=== PATIENT | male | born 1955 | race Caucasian/White ===

== ENCOUNTER 2020-05-10 20:22 | Observation (INO) | payer BC ==
[~2020-05-10] VITALS: Ht 177.8 cm; Wt 78.9 kg
[2020-05-10 21:33] LABS: HEMOGLOBIN 7.1 g/dl (14.0-17.9); LYMPHOCYTES # (AUTO) 2.1 X10'3 (1.1-4.8); LYMPHOCYTES % (AUTO) 26.3 % (21-51); MONOCYTES # (AUTO) 0.8 X10'3 (0-0.9); WHITE BLOOD COUNT 7.9 X10'3 (4.5-11.0)
[2020-05-10 21:35] LABS: BASOPHILS # (AUTO) 0.1 X10'3 (0-0.2); BASOPHILS % (AUTO) 1.8 % (0-1); EOSINOPHILS # (AUTO) 0.2 X10'3 (0-0.9); MONOCYTES % (AUTO) 9.8 % (2-12); NEUTROPHILS # (AUTO) 4.7 X10'3 (1.8-7.7); NEUTROPHILS % (AUTO) 59.1 % (42-75); PLATELET COUNT 260 X10'3 (140-440)
[2020-05-10 21:52] LABS: ALANINE AMINOTRANSFERASE 16 U/L (12-78); ALBUMIN 3.6 G/DL (3.4-5.0); ALBUMIN/GLOBULIN RATIO 1.2 (1.1-1.5); ALKALINE PHOSPHATASE 73 IU/L (46-116); ANION GAP 10 (8-16); ASPARTATE AMINO TRANSFERASE 14 U/L (10-37); BILIRUBIN,TOTAL 0.5 MG/DL (0.1-1.0); BLOOD UREA NITROGEN 15 MG/DL (7-18); BUN/CREATININE RATIO 15.8 (5.4-32.0); CALCIUM 8.9 MG/DL (8.5-10.1); CHLORIDE 103 MMOL/L (99-107); CREATININE 0.95 MG/DL (0.60-1.10); GLUCOSE 101 MG/DL (70-104); POTASSIUM 4.2 MMOL/L (3.5-5.1); SODIUM 137 MMOL/L (135-145); TOTAL CARBON DIOXIDE 23.7 MMOL/L (24-32); TOTAL PROTEIN 6.7 G/DL (6.4-8.2); eGFR 79 ML/MIN
[2020-05-10 22:21] LABS: HEMATOCRIT 23.1 % (42.0-52.0); MEAN CORPUSCULAR HEMOGLOBIN 22.5 PG (27.0-31.0); MEAN CORPUSCULAR HGB CONC 30.6 g/dL (33.0-36.5); MEAN CORPUSCULAR VOLUME 73.5 FL (78-98); RED BLOOD COUNT 3.14 X10'6 (4.70-6.10); RED CELL DISTRIBUTION WIDTH 18.9 % (11.5-14.5)
[2020-05-10 22:57] LABS: CLARITY,URINE CLEAR (Clear); COLOR,URINE YELLOW (Yellow); GLUCOSE, URINE NEGATIVE (Neg); KETONES,URINE NEGATIVE (Neg); LEUKOCYTE ESTERASE ,URINE TRACE (Neg); NITRITES, URINE NEGATIVE (Neg); OCCULT BLOOD,URINE TRACE-INTACT (Neg); PH,URINE 5.5 (4.8-8.0); PROTEIN,URINE NEGATIVE (Neg)
[2020-05-10 22:58] LABS: UA COLLECTION TYPE CLN CATCH MIDSTREAM
[2020-05-10 23:01] LABS: BACTERIA,URINE NONE SEEN /HPF (Neg); RBC,URINE 0-2 /HPF (0-2); SQUAMOUS EPITHELIAL CELL,UR FEW /LPF (FEW); WBC,URINE 0-4 /HPF (0-4)
[2020-05-10] MEDS ORDERED: pantoprazole 40 MG vial IV ONE (23:20)
--- NOTE | 2020-05-10 23:26 | NUR ---
x ray at bedside
[2020-05-10 23:40] LABS: PARTIAL THROMBOPLASTIN TIME 25 SECONDS (22-32)
[2020-05-11] VITALS (14 sets, daily range): BP systolic 105–148; BP diastolic 49–85
[2020-05-11] MEDS ORDERED: normal saline 1000ml 1,000 ML IV SCH (00:29)
[2020-05-11] MEDS ORDERED: ondansetron/PF 4mg/2ml inj IV PRN (00:30)
[2020-05-11] MEDS ORDERED: magnesium Cl slow-release 64mg tablet PO PRN (00:30)
[2020-05-11] MEDS ORDERED: magnesium hydroxide 30ml (MOM) UD suspension PO PRN (00:30)
[2020-05-11] MEDS ORDERED: mag hydrox/Alum hydrox/simeth 30ml oral suspension PO PRN (00:30)
[2020-05-11] MEDS ORDERED: HYDROcodone/acetaminophen 10/325mg tab PO PRN (00:30)
[2020-05-11] MEDS ORDERED: potassium Cl 20 mEq SR tablet PO PRN ×2 (00:30)
[2020-05-11] MEDS ORDERED: diphenhydrAMINE 25mg capsule PO PRN (00:30)
[2020-05-11] MEDS ORDERED: HYDROcodone/acetaminophen 5mg/325mg tablet PO PRN ×2 (00:30→02:45)
[2020-05-11] MEDS ORDERED: acetaminophen 325mg tablet PO PRN ×2 (00:30)
[2020-05-11] MEDS ORDERED: bisacodyl 10mg suppository rectal RC PRN (00:30)
[2020-05-11] MEDS ORDERED: metoclopramide 5 mg/ml inj IV PRN (00:30)
[2020-05-11] MEDS ORDERED: magnesium 4gm in 100ml NS 100 ML IV PRN (00:30)
[2020-05-11] MEDS ORDERED: potassium CL 10mEq/100ml bag 100 ML IV PRN ×2 (00:30)
[2020-05-11] MEDS ORDERED: diphenhydrAMINE 50 mg/ml inj IV PRN (00:30)
[2020-05-11] MEDS ORDERED: magnesium 2GM in 50ml NS 50 ML IV PRN (00:30)
--- NOTE | 2020-05-11 00:33 | NUR ---
MARYKOJO ANGELIC: HOME: [phone] CELL: [phone]
[2020-05-11] MEDS ORDERED: ATOR40TA PO (02:29)
[2020-05-11] MEDS ORDERED: NITR0.4T51 SL (02:29)
[2020-05-11] MEDS ORDERED: PANT-47 PO (02:29)
[2020-05-11] MEDS ORDERED: METO25TA6 PO (02:29)
[2020-05-11] MEDS ORDERED: ONDA4TAB6 PO (02:29)
[2020-05-11] MEDS ORDERED: AMLO-93 PO (02:29)
[2020-05-11] MEDS ORDERED: HYDR-3965 PO (02:29)
[2020-05-11] MEDS ORDERED: ASPI-1265 PO (02:29)
--- NOTE | 2020-05-11 02:59 | NUR ---
MESSAGE: [id number] [phone], PLEASE CALL MALATHI IN LAB RE: KONRAD MONTILLA
--- NOTE | 2020-05-11 05:43 | NUR ---
PT STATED HE HAS LOTS OF TESTS IN PAST OUT OF AREA TO TRY TO FIND ANY BLEEDING SOURCE. HE SAID HE HAS HAD ULTRA SOUNDS. ASKED IF HE HAS HAD A TAGGED RED BLOOD CELL SCAN AND HE DIDN'T THINK SO. STATED HIS pmd IN [place] HAS REQUESTED HIS RECORDS.
--- NOTE | 2020-05-11 06:13 | NUR ---
Patient in room PCU 3012. I have received report from Lyn GONZALEZ and had the opportunity to ask questions and assume patient care.
--- NOTE | 2020-05-11 06:14 | NUR ---
Problems reprioritized. Patient report given, questions answered & plan of care reviewed with dAY sHIFT rn.
[2020-05-11 06:27] LABS: BASOPHILS # (AUTO) 0.1 X10'3 (0-0.2); BASOPHILS % (AUTO) 1.2 % (0-1); EOSINOPHILS # (AUTO) 0.2 X10'3 (0-0.9); EOSINOPHILS % (AUTO) 3.1 % (0-6); HEMATOCRIT 25.6 % (42.0-52.0); HEMOGLOBIN 7.6 g/dl (14.0-17.9); LYMPHOCYTES # (AUTO) 1.3 X10'3 (1.1-4.8); LYMPHOCYTES % (AUTO) 16.4 % (21-51); MEAN CORPUSCULAR HEMOGLOBIN 22.1 PG (27.0-31.0); MEAN CORPUSCULAR HGB CONC 29.8 g/dL (33.0-36.5); MEAN CORPUSCULAR VOLUME 74.3 FL (78-98); MEAN PLATELET VOLUME 8.9 FL (7.4-10.4); MONOCYTES # (AUTO) 0.5 X10'3 (0-0.9); MONOCYTES % (AUTO) 6.4 % (2-12); NEUTROPHILS # (AUTO) 5.7 X10'3 (1.8-7.7); NEUTROPHILS % (AUTO) 72.9 % (42-75); PLATELET COUNT 243 X10'3 (140-440); RED BLOOD COUNT 3.44 X10'6 (4.70-6.10); WHITE BLOOD COUNT 7.8 X10'3 (4.5-11.0)
[2020-05-11 06:31] LABS: IRON 11 UG/DL (53-167); TOTAL IRON BINDING CAPACITY 427 UG/DL (259-388)
[2020-05-11 06:32] LABS: % IRON SATURATION 3 % (11-46)
[2020-05-11 07:20] LABS: ANISOCYTOSIS 2+; MICROCYTOSIS 1+; PLATELET ESTIMATE NORMAL
[2020-05-11 07:21] LABS: HYPOCHROMASIA 2+; SCHISTOCYTES FEW
[2020-05-11 07:22] LABS: LARGE PLATELETS FEW
[2020-05-11 07:23] LABS: ELLIPTOCYTES 1+
[2020-05-11] MEDS: K and/or MAG REPLACEMENT MC SCH ×2 (07:47→20:00)
[2020-05-11] MEDS ORDERED: non-formulary drug (Amlodipine Besylate/Benazepril 5/40 MG* (Amlodipine-Benazepril 5/40 MG PO SCH (08:00)
[2020-05-11] MEDS: amLODIPine 5mg tablet PO SCH (08:38)
[2020-05-11] MEDS: metoprolol tartrate 25mg tablet PO SCH ×2 (08:39→20:19)
[2020-05-11] MEDS: atorvastatin 20mg tablet PO SCH (08:39)
[2020-05-11] MEDS: pantoprazole 40mg Tablet.DR PO SCH (08:39)
[2020-05-11] MEDS: lisinopril 20mg tablet PO SCH (08:39)
--- NOTE | 2020-05-11 09:19 | NUR ---
paged regarding AB US results. Awaiting call back.
[2020-05-11] MEDS ORDERED: pneumococcal 23-VAL P-sac vacc 25 mcg/0.5ml vial IMVAC ONE (10:00)
--- NOTE | 2020-05-11 18:27 | NUR ---
Problems reprioritized. Patient report given, questions answered & plan of care reviewed with Gwen RN.
--- NOTE | 2020-05-11 18:43 | NUR ---
Patient in room PCU 3012. I have received report from Gabriela GONZALEZ and had the opportunity to ask questions and assume patient care.
[2020-05-11] MEDS: diatr meglu/diatrizoate 30ml oral sol.-(3 dose) bottle PO SCH (20:20)
[2020-05-11] MEDS ORDERED: temazepam 15mg capsule PO PRN (21:00)
[2020-05-12 02:00] VITALS: BP 128/52
[2020-05-12 06:00] VITALS: BP 106/61
--- NOTE | 2020-05-12 06:20 | NUR ---
Patient in room PCU 3012. I have received report from Gwen GONZALEZ and had the opportunity to ask questions and assume patient care.
--- NOTE | 2020-05-12 06:22 | NUR ---
Problems reprioritized. Patient report given, questions answered & plan of care reviewed with Fidencio GONZALEZ.
[2020-05-12 06:33] LABS: BASOPHILS # (AUTO) 0.1 X10'3 (0-0.2); BASOPHILS % (AUTO) 1.3 % (0-1); EOSINOPHILS # (AUTO) 0.2 X10'3 (0-0.9); EOSINOPHILS % (AUTO) 2.5 % (0-6); HEMATOCRIT 25.7 % (42.0-52.0); HEMOGLOBIN 7.8 g/dl (14.0-17.9); LYMPHOCYTES # (AUTO) 1.8 X10'3 (1.1-4.8); LYMPHOCYTES % (AUTO) 20.4 % (21-51); MEAN CORPUSCULAR HEMOGLOBIN 22.3 PG (27.0-31.0); MEAN CORPUSCULAR HGB CONC 30.2 g/dL (33.0-36.5); MEAN CORPUSCULAR VOLUME 73.9 FL (78-98); MEAN PLATELET VOLUME 8.9 FL (7.4-10.4); MONOCYTES # (AUTO) 0.9 X10'3 (0-0.9); MONOCYTES % (AUTO) 9.6 % (2-12); NEUTROPHILS % (AUTO) 66.2 % (42-75); PLATELET COUNT 222 X10'3 (140-440); RED BLOOD COUNT 3.48 X10'6 (4.70-6.10); RED CELL DISTRIBUTION WIDTH 19.8 % (11.5-14.5)
[2020-05-12 06:49] LABS: ANION GAP 8 (8-16); BILIRUBIN,TOTAL 0.9 MG/DL (0.1-1.0); BLOOD UREA NITROGEN 15 MG/DL (7-18); BUN/CREATININE RATIO 16.3 (5.4-32.0); CALCIUM 8.1 MG/DL (8.5-10.1); CHLORIDE 106 MMOL/L (99-107); CREATININE 0.92 MG/DL (0.60-1.10); GLUCOSE 91 MG/DL (70-104); POTASSIUM 4.2 MMOL/L (3.5-5.1); SODIUM 139 MMOL/L (135-145); TOTAL CARBON DIOXIDE 25.1 MMOL/L (24-32); TOTAL PROTEIN 6.2 G/DL (6.4-8.2); eGFR 82 ML/MIN
[2020-05-12 06:50] LABS: ALANINE AMINOTRANSFERASE 15 U/L (12-78); ALBUMIN 3.3 G/DL (3.4-5.0); ALBUMIN/GLOBULIN RATIO 1.1 (1.1-1.5); ALKALINE PHOSPHATASE 63 IU/L (46-116); ASPARTATE AMINO TRANSFERASE 11 U/L (10-37)
[2020-05-12] MEDS: diatr meglu/diatrizoate 30ml oral sol.-(3 dose) bottle PO SCH ×2 (07:21→09:49)
[2020-05-12] MEDS: pantoprazole 40mg Tablet.DR PO SCH (07:22)
[2020-05-12] MEDS: atorvastatin 20mg tablet PO SCH (07:22)
[2020-05-12] MEDS: metoprolol tartrate 25mg tablet PO SCH (07:23)
[2020-05-12 08:00] LABS: PLATELET ESTIMATE NORMAL
[2020-05-12] MEDS: lisinopril 20mg tablet PO SCH (08:00)
[2020-05-12] MEDS: K and/or MAG REPLACEMENT MC SCH (08:00)
[2020-05-12 08:01] LABS: ANISOCYTOSIS 2+; MICROCYTOSIS 1+
[2020-05-12 08:02] LABS: ELLIPTOCYTES 1+; HYPOCHROMASIA 2+; SCHISTOCYTES FEW
[2020-05-12 08:03] LABS: POLYCHROMASIA FEW
[2020-05-12 08:04] LABS: BURR CELLS FEW
[2020-05-12] MEDS ORDERED: iohexol 300mg/ml 100ml inj. ONE (10:00)
[2020-05-12] MEDS: amLODIPine 5mg tablet PO SCH (10:26)
[2020-05-12 11:00] VITALS: BP 99/48
--- NOTE | 2020-05-12 14:20 | NUR ---
Pt DC'd home wioth brother. IV removed, canula intact. Vitals WNL and Pt stable upon DC. okayed Pt for DC. DC paperwork gone over with Pt, allowed Pt to ask questions concerning DC and then answered them. No new medications prescribed for Pt. Pt's face sheet faxed over to Dr. Hill's office for follow up colonoscopy. Pt aware that Dr. Hill's office will be in contact with pt to make colonoscopy appt. Pt stated that he will call Dr. Hill's office tomorrow to set up appt. Pt also stated that he will make follow up appt with his PCP within 1 week. Pt's belongings gathered and sent with Pt. Pt wheeled down to lobby in wheelchair. Pt left in private vehicle with brother for home.
== END 2020-05-12 14:20 | disposition home or self-care (01) ==
LOC: ER 20:24 → ED HOLD 05-11 00:29 → PCU 3S 05-11 03:10
PROVIDERS: ADMIT Family Medicine; ATTEND Family Medicine
DX: D50.9 Iron deficiency anemia, unspecified (principal); R53.1 Weakness; R42 Dizziness and giddiness; D58.9 Hereditary hemolytic anemia, unspecified; I25.10 Atherosclerotic heart disease of native coronary artery without angina pectoris; I10 Essential (primary) hypertension; E78.5 Hyperlipidemia, unspecified; F32.9 Major depressive disorder, single episode, unspecified; K21.9 Gastro-esophageal reflux disease without esophagitis; E11.9 Type 2 diabetes mellitus without complications; I35.0 Nonrheumatic aortic (valve) stenosis; Z23 Encounter for immunization; Z91.19 Patient's noncompliance with other medical treatment and regimen; Z87.891 Personal history of nicotine dependence; Z87.442 Personal history of urinary calculi; Z95.1 Presence of aortocoronary bypass graft; Z95.5 Presence of coronary angioplasty implant and graft; Z95.2 Presence of prosthetic heart valve; Z79.82 Long term (current) use of aspirin; Z79.899 Other long term (current) drug therapy; Z91.048 Other nonmedicinal substance allergy status
CPT/HCPCS: 36415; 36430; 71045; 71260; 74177; 76700; 80053; 81001; 83540; 83550; 83735; 85025; 85610; 85730; 86885; 86900; 86901; 86920; 87081; 87088; 90732; 93005; 93306; 96361; 96374; 96375; 99285; C9113; G0009; G0378; J2405; J7030; P9016; Q0163; Q9963; Q9967